=== PATIENT | male | born 1950 | race Caucasian/White ===

== ENCOUNTER 2021-04-22 11:16 | Inpatient (IN) | payer OTHER ==
[2021-04-22 12:58] LABS: BASO % 0.5 % (0-2.0); EOS % 2.7 % (0-4.5); HEMATOCRIT 37.3 % (35.4-49); HEMOGLOBIN 12.4 GM/dL (11.7-16.9); LYMPH % 21.4 % (8-40); MCH 27.7 pg (25.7-33.7); MCHC 33.3 g/dl (32.0-35.9); MEAN CELL VOLUME 83.3 fl (80-96); MEAN PLT VOLUME 9.4 fl (7.5-11.1); MONO % 6.4 % (3.8-10.2); PLATELET COUNT 200 10^3/uL (134-434); RBC 4.48 M/mm3 (4.00-5.60); RDW 15.9 % (11.9-15.9); WHITE BLOOD COUNT 11.2 K/mm3 (4.0-10.0)
[2021-04-22 13:02] LABS: INR 1.4 (0.83-1.09); PROTHROMBIN TIME (PATIENT) 15.7 SEC (9.7-13.0)
[2021-04-22 13:27] LABS: ALBUMIN 3.1 g/dl (3.4-5.0); BLOOD UREA NITROGEN 19.6 mg/dL (7-18)
[2021-04-22 13:32] LABS: BILIRUBIN,TOTAL 0.5 mg/dL (0.2-1); ERYTHROCYTE SEDIMENTATION RATE 65 mm/hr (0-20); TOT PROT 7.6 g/dl (6.4-8.2)
[2021-04-22] MEDS: PANTOPRAZOLE 40 MG TABLET PO SCH (14:20)
[2021-04-22] MEDS ORDERED: PANTOPRAZOLE 40 MG TABLET ONE (16:13)
[2021-04-22 19:57] VITALS: BMI 24.7
[2021-04-22] MEDS ORDERED: VANCOMYCIN 1 GM in D5W (PRE-DOCKED) 1,000 MG/250 ML IVPB ONE (21:13)
[2021-04-22] MEDS ORDERED: CEFTRIAXONE 1 GM in DEXTROSE 5%-WATER - 50 ML IVPB ONE (21:14)
[2021-04-22] MEDS ORDERED: VANCOMYCIN 1 GRAM (PRE-DOCKED) 1,000 MG/250 ML BAG IVPB ONE (21:30)
[2021-04-22] MEDS ORDERED: DEXTROSE 5%-WATER - 50 ML IVPB ONE (23:09)
[2021-04-22] MEDS ORDERED: cefTRIAXone SODIUM 1 GM VIAL ONE (23:09)
[2021-04-23] MEDS: PANTOPRAZOLE 40 MG TABLET PO SCH (10:05)
[2021-04-23 13:29] VITALS: BP 128/83; PULSE 93; TEMP 97.8
== END 2021-04-23 13:36 | disposition short-term general hospital (02) | DRG 94 ==
LOC: JER 11:16 → JERBED 13:35 → J7W 18:48
PROVIDERS: ADMIT Internal Medicine; ATTEND Internal Medicine
DX: G06.1 Intraspinal abscess and granuloma (principal); K68.12 Psoas muscle abscess; M46.26 Osteomyelitis of vertebra, lumbar region; D72.829 Elevated white blood cell count, unspecified; M46.46 Discitis, unspecified, lumbar region; I10 Essential (primary) hypertension; E78.5 Hyperlipidemia, unspecified; I44.0 Atrioventricular block, first degree; M62.81 Muscle weakness (generalized); R20.2 Paresthesia of skin; N28.1 Cyst of kidney, acquired; I25.10 Atherosclerotic heart disease of native coronary artery without angina pectoris; R26.81 Unsteadiness on feet; Z95.5 Presence of coronary angioplasty implant and graft
CPT/HCPCS: 36415; 71045-TC-FY; 72131-TC; 72149-TC; 80053; 82607; 85025; 85610; 85651; 86038; 86140; 86850; 86900; 86901; 87040; 93005; 93010; 93306-TC; 97116-GP; 97161-GP; 99285-25; C9803; U0003; U0005